=== PATIENT | female | born 1970 | race African-American/Black ===

== ENCOUNTER 2023-10-30 10:34 | Emergency (ER) | payer OTHER, SELFPAY ==
[2023-10-30] VITALS (26 sets, daily range): BP systolic 144–178; BP diastolic 89–110; PULSE 90–129; RESP 8–24; TEMP 36.4; O2SAT 92–98; BMI 34.9
--- NOTE | 2023-10-30 11:14 | ECG_ITS ---
[facility] Test Date: 2023-10-30 Pat Name: MARIELLA MENDOZA Department: Room: - Gender: Female Residential Caregiver: : 1970 Requested By: Reji Hirsch Order Number: [id number] Reading MD: CAIN KUHN Measurements Intervals [place] Rate: 118 P: 71 [place]: 142 QRS: 52 QRSD: 126 T: 38 QT: 354 QTc: 424 Interpretive Statements 1120 Sinus tachycardia 2540 Incomplete left bundle branch block 6220 Possible left atrial enlargement LEFT VENTRICULAR HYPERTROPHY w/ strain pattern 9150 abnormal ECG No previous ECG available for comparison Electronically Signed On 10-31-2023 17:37:02 EST by CAIN KUHN
--- NOTE | 2023-10-30 11:14 | CT_ITS ---
The [address] [address] Patient Name: MARIELLA MENDOAZ MRN: [id number] date: 1970 Sex: F Assigned Patient Location: ER Current Patient Location: Accession/Order Number: [id number] Exam Date: 10/30/2023 12:00 Report Date: 10/30/2023 13:13 At the request of: NADIA MATTHEWS Procedure: CT angio chest EXAM: CT angio chest HISTORY: hemoptysis COMPARISON: None. TECHNIQUE: Axial postcontrast CTA imaging of the chest was performed with coronal and sagittal as well as maximum intensity projection and 3-D reformats. This CT exam was performed using one or more of the following dose reduction techniques: Automated exposure control, adjustment of the MA and/or kV according to patient size, or use of iterative reconstruction technique. FINDINGS: Chest wall/thoracic inlet/central airways: Within normal limits. Central airways patent. Thyroid: Visualized portions within normal limits. Mediastinum/sarmad/axillae: No adenopathy. Heart/vessels: No pulmonary embolus. The pulmonary artery and aorta are normal in course and caliber. Cardiomegaly with prominent enlargement of the left lateral ventricle and left atrium. No pericardial effusion. Coronary artery calcifications are absent. Pleura: No pleural effusion or pneumothorax. Lungs: Extensive multifocal consolidative densities which are somewhat nodular and spiculated appearance are seen throughout the lungs. Upper abdomen: Unremarkable. MSK: No acute osseous or soft tissue findings. CT/CT angio chest IMPRESSION: 1. No pulmonary embolus. 2. Findings concerning for atypical inflammatory/infectious process with extensive multifocal consolidative nodular densities which are somewhat spiculated in appearance seen throughout the lungs greater involving the peribronchial/vascular bundle. Less likely this could relate to neoplasm. Continued attention on follow-up for resolution is recommended. 3. Cardiomegaly greater involving the left heart. No substantial pericardial effusion. Electronically authenticated by: ALEYDA CANO Date: 10/30/2023 13:13
--- NOTE | 2023-10-30 11:16 | ED_ITS ---
HPI - General Adult General Chief complaint: Upper Respiratory Infection Stated complaint: COUGHING UP BLOOD Time Seen by Provider: 10/30/23 10:40 Source: patient Mode of arrival: walk-in Limitations: no limitations History of Present Illness HPI narrative: Cough started 3 days ago. Yesterday and today she has been coughing up bloody phlegm. She is a former smoker - quit 2 years ago. 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 No prior history of lung CA. She denied any ear pain or sore throat. She had a URI last month that lasted about 2 weeks with harsh coughing, she told me. Tested negative for Covid at that time. Related Data Home Medications Medication Instructions Recorded Confirmed hydralazine 25 mg tablet 25 mg PO DAILY 10/30/23 10/30/23 loratadine 10 mg tablet (Allergy 10 mg PO DAILY 10/30/23 10/30/23 Relief (loratadine)) Previous Rx's Medication Instructions Recorded levofloxacin 750 mg tablet 750 mg PO DAILY 5 days #5 tabs 10/30/23 Allergies Allergy/AdvReac Type Severity Reaction Status Date / Time No Known Drug Allergies Allergy Verified 10/30/23 10:43 [facility] Social History Smoking status: Former smoker Exam Narrative Exam Narrative: Nurses notes and vital signs reviewed and patient is not hypoxic. afebrile General: Well-appearing and in no apparent distress. Skin: Warm, dry, no pallor noted. No rash. Head: Normocephalic, atraumatic. Eye: Pupils are equal, round and EOMI. No scleral icterus. Ears, Nose, Mouth, and Throat: TM are clear, no posterior oropharynx erythema or nasal mucosal hypertrophy, uvula is mid-line Oral mucosa is moist Cardiovascular: Tachycardia. Respiratory: No accessory muscle use or respiratory distress. Lungs are clear to auscultation, no wheezing, rales or rhonchi Musculoskeletal: normal ROM, no calf or popliteal tenderness, no lower extremity edema/swelling GI: Abdomen is soft, non-distended. Normal bowel sounds. No tenderness to palpation. No rebound, guarding, or rigidity noted. Neurological: A&O x4. No cranial nerve dysfunction observed. No truncal ataxia. Moves all extremities. Sensation intact. Psychiatric: Cooperative and interactive. Normal mood and affect. Constitutional Vital Signs, click to edit/add: Last Vital Signs Temp 97.6 F 10/30/23 10:53 Pulse 103 H 10/30/23 12:50 Resp 15 10/30/23 12:50 BP 176/89 H 10/30/23 12:09 Pulse Ox 94 L 10/30/23 12:50 O2 Del Method Room Air 10/30/23 10:53 Course Vital Signs Vital signs: Vital Signs Pulse Rate 129 H 10/30/23 10:39 Respiratory Rate 24 10/30/23 10:39 Pulse Oximetry 96 10/30/23 10:39 Oxygen Delivery Method Room Air 10/30/23 10:39 Temperature 97.6 F 10/30/23 10:53 Pulse Rate 103 H 10/30/23 12:50 Respiratory Rate 15 10/30/23 12:50 Blood Pressure 176/89 H 10/30/23 12:09 Pulse Oximetry 94 L 10/30/23 12:50 Oxygen Delivery Method Room Air 10/30/23 10:53 Medical Decision Making [facility] Narrative Medical decision making narrative: Patient was placed on lunchroom monitor and EKG obtained. Blood drawn and sent for evaluation. Due to the hemoptysis, she was sent for CT angio chest -she denied any history of kidney disease. Normal WBC. Normal coags and unremarkable CMP. CT angio concerning for multifocal pneumonia versus neoplasm. patient discharged home with prescription for Levaquin but she will need to see her PCP and have repeat CT angio chest once infection clears to document clearing of the findings. Patient given a coy of the report to take with her for PCP follow up. Lab Data Lab results reviewed: Yes I reviewed the patient's lab results Labs: Lab Results 10/30/23 Range/Units 10:50 WBC 6.5 (4.0-11.0) 10^3/uL RBC 6.19 H (4.20-5.40) 10^6/uL Hgb 13.0 (12.0-16.0) g/dL Hct 43.1 (36.0-48.0) % MCV 69.6 L (81.0-99.0) fL MCH 21.0 L (26.7-34.0) pg MCHC 30.2 (29.9-35.2) g/dL RDW 18.3 H (11.0-15.0) % Plt Count 364 (150-450) 10^3/uL Neut % (Auto) 72.1 (43.0-75.0) % Lymph % (Auto) 19.0 L (20.5-60.0) % [place] % (Auto) 7.3 (1.7-12.0) % Eos % (Auto) 0.8 L (0.9-7.0) % Baso % (Auto) 0.6 (0.2-2.0) % Neut # (Auto) 4.7 (1.4-6.5) 10^3/uL Lymph # (Auto) 1.2 (1.2-3.8) 10^3/uL [place] # (Auto) 0.5 (0.3-0.8) 10^3/uL Eos # (Auto) 0.1 (0.0-0.7) 10^3/uL Baso # (Auto) 0.0 (0.0-0.1) 10^3/uL Abs Immat Gran (auto) 0.01 (0.00-0.03) 10^3/uL Imm/Tot Granulo (auto) 0.2 (0.0-0.5) % PT 9.8 (9.0-11.6) sec INR <0.93 APTT 22.4 (22.3-36.2) sec Sodium 141 (136-145) mmol/L Potassium 3.8 (3.5-5.1) mmol/L Chloride 104 (98-107) mmol/L Carbon Dioxide 29.0 (21.0-32.0) mmol/L Anion Gap 11.8 BUN 10.0 (7.0-18.0) mg/dL Creatinine 0.83 (0.55-1.02) mg/dL Est GFR ( Amer) >60 (>=60) Est GFR (Non-Af Amer) >60 (>=60) BUN/Creatinine Ratio 12.0 Glucose 104 (74-106) mg/dL Calcium 9.7 (8.5-10.1) mg/dL Total Bilirubin 0.3 (0.2-1.0) mg/dL AST 19 (15-37) U/L ALT 22 (14-59) U/L Alkaline Phosphatase 97 (46-116) U/L Total Protein 9.5 H (6.4-8.2) g/dL Albumin 3.1 L (3.4-5.0) g/dL Globulin 6.4 g/dL Albumin/Globulin Ratio 0.5 ECG Data Attestation: I personally reviewed and interpreted this ECG as follows: Interpretation: EKG interpretation: Emergency Department physician interpretation. sinus tachycardia at 118bpm. Incomplete left bundle branch block. Left atrial enlargement. Difficult to assess ST elevation due to the patient's left bundle branch block. Discharge Plan Discharge Chief Complaint: Upper Respiratory Infection Clinical Impression: Cough with hemoptysis, Community acquired pneumonia Patient Disposition: Home, Self-Care Time of Disposition Decision: 13:30 Prescriptions / Home Meds: New levofloxacin 750 mg tablet 750 mg PO DAILY 5 Days Qty: 5 0RF No Action hydralazine 25 mg tablet 25 mg PO DAILY loratadine [Allergy Relief (loratadine)] 10 mg tablet 10 mg PO DAILY Instructions: Community Acquired Pneumonia (ED) Stand Alone Forms: Portal Instructions Referrals: Physician,Non-Staff, MD [Primary Care Provider] - 1 week
[2023-10-30] MEDS: 0.9 % SODIUM CHLORIDE 1,000 ML 999 ML IV (11:25)
[2023-10-30] MEDS: LABETALOL HCL 20 MG/4 ML SYRINGE IVP (11:28)
[2023-10-30 11:32] LABS: Basophils Percent Auto 0.6 % (0.2-2.0); Eosinophils Absolute Auto 0.1 10^3/uL (0.0-0.7); Eosinophils Percent Auto 0.8 % (0.9-7.0); Hematocrit 43.1 % (36.0-48.0); Immature Granulocytes Abs Auto 0.01 10^3/uL (0.00-0.03); Immature Granulocytes Pct Auto 0.2 % (0.0-0.5); Lymphocytes Absolute Auto 1.2 10^3/uL (1.2-3.8); Mean Corpuscular HGB Conc 30.2 g/dL (29.9-35.2); Mean Corpuscular Volume 69.6 fL (81.0-99.0); Monocytes Absolute Auto 0.5 10^3/uL (0.3-0.8); Monocytes Percent Auto 7.3 % (1.7-12.0); Neutrophils Absolute Auto 4.7 10^3/uL (1.4-6.5); Neutrophils Percent Auto 72.1 % (43.0-75.0); Platelet Count 364 10^3/uL (150-450); Red Blood Count 6.19 10^6/uL (4.20-5.40); Red Cell Distribution Width 18.3 % (11.0-15.0); White Blood Count 6.5 10^3/uL (4.0-11.0)
[2023-10-30 11:36] LABS: Partial Thromboplastin Time 22.4 sec (22.3-36.2)
[2023-10-30 11:40] LABS: Prothrombin Time 9.8 sec (9.0-11.6)
[2023-10-30 11:43] LABS: Alanine Aminotransferase 22 U/L (14-59); Albumin Globulin Ratio 0.5; Albumin Level 3.1 g/dL (3.4-5.0); Alkaline Phosphatase 97 U/L (46-116); Anion Gap 11.8; Aspartate Amino Transferase 19 U/L (15-37); Bilirubin Total 0.3 mg/dL (0.2-1.0); Calcium 9.7 mg/dL (8.5-10.1); Chloride 104 mmol/L (98-107); Estimated GFR (African America >60 (>=60); Estimated GFR (Non-African Ame >60 (>=60); Globulin 6.4 g/dL; Glucose 104 mg/dL (74-106); Potassium 3.8 mmol/L (3.5-5.1); Sodium 141 mmol/L (136-145); Total Protein 9.5 g/dL (6.4-8.2)
[2023-10-30 11:48] LABS: INR <0.93
== END 2023-10-30 13:47 | disposition home or self-care (01) ==
PROVIDERS: Emergency Provider Emergency Medicine
DX: J18.9 Pneumonia, unspecified organism (principal); R04.2 Hemoptysis; R05.9 Cough, unspecified; Z87.891 Personal history of nicotine dependence; Z79.899 Other long term (current) drug therapy
CPT/HCPCS: 36415; 71275; 80053; 85025; 85610; 85730; 87070; 87205; 93005; 96374; 99285; J1290; Q9967